=== PATIENT | female | born 1980 | race Caucasian/White ===

== ENCOUNTER 2017-09-26 13:27 | Emergency (ER) | payer OTHER ==
[~2017-09-26] VITALS: Ht 154.9 cm; Wt 156.5 kg
[2017-09-26] MEDS ORDERED: FAMOTIDINE 20 MG/2 ML VIAL IV SCH (13:30)
[2017-09-26] MEDS ORDERED: METHYLPREDNISOLONE SOD SUCC 125 MG/2ML VIAL IV ONE (13:45)
[2017-09-26] MEDS ORDERED: DIPHENHYDRAMINE HCL INJ 50 MG/ML VIAL IV ONE (13:45)
[2017-09-26] MEDS ORDERED: FAMOTIDINE 20 MG/2 ML VIAL IV ONE (13:49)
[2017-09-26] MEDS ORDERED: BENADRYL25 M1 PO (15:07)
[2017-09-26] MEDS ORDERED: PREDNISONE20 MG PO (15:07)
[2017-09-26] MEDS ORDERED: EPINEPHRIN0.3 MG/0.3 IM (15:07)
[2017-09-26] MEDS ORDERED: PEPCID20 MG PO (15:07)
[2017-09-26 15:56] VITALS: BP 125/82
[2017-09-27] MEDS ORDERED: FAMOTIDINE 20 MG/2 ML VIAL IV SCH (09:00)
== END 2017-09-26 16:15 | disposition home or self-care (01) ==
LOC: ER 13:27
DX: T78.40XA Allergy, unspecified, initial encounter (principal)
CPT/HCPCS: 99283; J1200; J2930

== ENCOUNTER 2020-02-22 02:47 | Emergency (ER) | payer OTHER ==
[~2020-02-22] VITALS: Ht 154.9 cm; Wt 113.4 kg
[~2020-02-22 02:47] MED LIST: BENADRYL25 M1 PO; EPINEPHRIN0.3 MG/0.3 IM; PEPCID20 MG PO; PREDNISONE20 MG PO
[2020-02-22] MEDS ORDERED: FAMOTIDINE 20 MG TAB PO ONE (03:15)
[2020-02-22] MEDS ORDERED: ALBUTEROL/IPRATROPIUM 3 ML NEB NEB ONE (03:15)
[2020-02-22] MEDS ORDERED: DEXAMETHASONE SOD PHOS 10 MG/1 ML VIAL IM ONE (03:15)
[2020-02-22] MEDS ORDERED: DIPHENHYDRAMINE HCL 25 MG CAP PO ONE (03:15)
[2020-02-22] MEDS ORDERED: BENADRYL25 M1 PO (03:17)
[2020-02-22] MEDS ORDERED: PREDNISONE20 MG PO (03:17)
[2020-02-22] MEDS ORDERED: EPINEPHRIN0.3 MG/0.3 IM (03:17)
[2020-02-22] MEDS ORDERED: PROVENTIL HFA6.7 GM INH (03:17)
[2020-02-22] MEDS ORDERED: PEPCID20 MG PO (03:17)
[2020-02-22] MEDS ORDERED: DEXAMETHASONE SOD PHOS INJ 4 MG/ML VIAL ONE ×2 (03:32→03:34)
[2020-02-22] MEDS ORDERED: ALBUTEROL/IPRATROPIUM 3 ML NEB ONE ×2 (03:32→03:34)
[2020-02-22] MEDS ORDERED: DIPHENHYDRAMINE HCL 25 MG CAP ONE ×2 (03:32→03:33)
[2020-02-22] MEDS ORDERED: FAMOTIDINE 20 MG TAB ONE (03:34)
[2020-02-22 04:30] VITALS: BP 154/90
== END 2020-02-22 04:30 | disposition home or self-care (01) ==
LOC: FSED 03:00
DX: L23.89 Allergic contact dermatitis due to other agents (principal); E03.9 Hypothyroidism, unspecified; G40.909 Epilepsy, unspecified, not intractable, without status epilepticus; Z88.8 Allergy status to other drugs, medicaments and biological substances; T50.905A Adverse effect of unspecified drugs, medicaments and biological substances, initial encounter
CPT/HCPCS: 96372; 99283; J1100 ×2